=== PATIENT | female | born 1965 | race Caucasian/White ===

== ENCOUNTER 2021-08-21 20:40 | Emergency (ER) | payer OTHER ==
[~2021-08-21] VITALS: Ht 162.6 cm; Wt 76.2 kg
[2021-08-21 20:43] VITALS: BP 190/117
--- NOTE | 2021-08-21 21:09 | NUR ---
PT RETURNED FROM CT
--- NOTE | 2021-08-21 21:29 | NUR ---
55 Y/O FEMALE BIBA, C/O NON-MECHANICAL FALL 1.5 HRS AGOPATIENT PRESENTS TO ED WITH APPROXIMATELY 3-4 INCH HEMATOMA TO THE BACK OF HER HEAD. FAMILY STATES HE HEARD A LOUD THUMP FROM THE OTHER ROOM, HE WENT TO CHECK ON HIS AND FOUND HER ON THE FLOOR. PT DOES NOT RECALL THE EVENT. FAMILY BELIEVES SHE MAY HAVE TRIPPED ON THE RECLINER AND HIT HER HEAD ON THE CABINET ON THE WAY DOWN. NO NECK/BACK PAIN, NO VISUAL DISTURBANCES, PT STATES SHE DOES HAVE SOME RINGING IN EARS. DENIES N/V/D; SKIN IS PINK/WARM/DRY; AAOX4 WITH EVEN AND STEADY GAIT; LUNGS CLEAR BL; HR EVEN AND REGULAR; PT DENIES ANY FEVER, CP, SOB, OR COUGH AT THIS TIME; PATIENT STATES PAIN OF 3/10 AT THIS TIME BUT IS UNABLE TO ACCURATELY DESCRIBE THE PAIN; VSS; PATIENT POSITIONED FOR COMFORT; HOB ELEVATED; BEDRAILS UP X1; BED DOWN. ER MD MADE AWARE OF PT STATUS. IS SEATED WITH PT. HX: BREAST CANCER (REMISSION), HTN, ACID REFLUX, THYROID DISEASE ALLERGIES TO SULFA AND VICODIN
--- NOTE | 2021-08-22 00:24 | NUR ---
Patient discharged with v/s stable. Written and verbal after care instructions given and explained. Patient verbalized understanding. Ambulatory with steady gait. All questions addressed prior to discharge. Advised to follow up with PMD. ER MD SPOKE WITH PT PRIOR TO DC. ALL QUESTIONS ADDRESSED, A/OX4, UNLABORED BREATHING, AND CALM DEMEANOR.
[2021-08-22 00:26] VITALS: BP 146/96
== END 2021-08-22 00:24 | disposition home or self-care (01) ==
LOC: MED 20:40
DX: S00.03XA Contusion of scalp, initial encounter (principal); F10.129 Alcohol abuse with intoxication, unspecified; K21.9 Gastro-esophageal reflux disease without esophagitis; I10 Essential (primary) hypertension; E07.9 Disorder of thyroid, unspecified; Z85.3 Personal history of malignant neoplasm of breast; W19.XXXA Unspecified fall, initial encounter; Y93.89 Activity, other specified; Y92.89 Other specified places as the place of occurrence of the external cause; Y99.8 Other external cause status
CPT/HCPCS: 70450; 99284

== ENCOUNTER 2022-01-23 09:04 | Emergency (ER) | payer OTHER ==
[~2022-01-23] VITALS: Ht 162.6 cm; Wt 70.0 kg
[2022-01-23 09:09] VITALS: BP 165/104
--- NOTE | 2022-01-23 09:16 | NUR ---
PT AMBULATED TO ER BED 8
--- NOTE | 2022-01-23 09:28 | NUR ---
56YR OLD FEMALE BIB SELF C/O L LEG PAIN X THIS AM. PT STATES SHE WOKE UP WITH PAIN IN LEFT CALF OF LEFT LEG. DENIES INJURY OR TRAUMA. 01/12 PAIN LEVEL. GOOD CAP REFILL . GOOD ROM. STATES PAIN WHEN WEIGHT AND DORSAL EXTENSION. PT A&OX4 STEADY GAIT. NO SWELLING OR REDDNESS NOTED. DENIES CP OR SOB. PT IN BED WITH SIDE RAILS DOWN X1. HOB ELEVATED. BED AT LOWEST POSITION. SULFA ARTHITIS
--- NOTE | 2022-01-23 09:40 | NUR ---
PENDING DC PAPERWORK
[2022-01-23] MEDS ORDERED: IBUP-2213 PO (09:43)
[2022-01-23 09:55] VITALS: BP 165/104
== END 2022-01-23 09:55 | disposition home or self-care (01) ==
LOC: MED 09:04
DX: M79.605 Pain in left leg (principal); K21.9 Gastro-esophageal reflux disease without esophagitis; I10 Essential (primary) hypertension; E07.9 Disorder of thyroid, unspecified; F17.200 Nicotine dependence, unspecified, uncomplicated; Z90.49 Acquired absence of other specified parts of digestive tract; Z85.3 Personal history of malignant neoplasm of breast; Z90.710 Acquired absence of both cervix and uterus
CPT/HCPCS: 99282

== ENCOUNTER 2022-07-13 09:44 | Emergency (ER) | payer OTHER ==
[~2022-07-13] VITALS: Ht 162.6 cm; Wt 74.8 kg
[~2022-07-13 09:44] MED LIST: IBUP-2213 PO
[2022-07-13 10:14] VITALS: BP 130/85
--- NOTE | 2022-07-13 10:20 | NUR ---
PT STATED THAT YESTERDAY SHE RANDOMLY HAD HER VITAL SIGNS CHECKED AT WORK. THEY TOLD HER TO GET HER BP CHECKED OUT. SHE DOSEN'T KNOW HER BP FROM YEST. WHILE I CHECKED HER BP HERE AT THE ER, HER VITAL SIGNS WERE WNL. PT DECIDED TO LEAVE WITHOUT BEING SEEN BY
== END 2022-07-13 10:20 | disposition left against medical advice (07) ==
LOC: MED 09:44
DX: R03.0 Elevated blood-pressure reading, without diagnosis of hypertension (principal); Z53.21 Procedure and treatment not carried out due to patient leaving prior to being seen by health care provider